=== PATIENT | male | born 1970 | race Caucasian/White ===

== ENCOUNTER → 2016-12-24 | Outpatient (CLI) | payer BC | LOC: HEART 5 09:12 | DX: I20.8 Other forms of angina pectoris (principal) | CPT/HCPCS: 78452; A9502 ==

== ENCOUNTER 2020-11-01 11:03 | Emergency (ER) | payer BC, OTHER ==
[2020-11-01 11:36] LABS: HEMOGLOBIN 17.1 gm/dl (14.0-17.5); RED BLOOD COUNT 6.05 M/UL (4.20-5.50); WHITE BLOOD COUNT 5.3 K/UL (4.5-11.0)
[2020-11-01 12:45] LABS: BUN/CREATININE RATIO 11 (0-10)
== END 2020-11-01 17:30 | disposition left against medical advice (07) ==
LOC: ER1 11:03
PROVIDERS: Emergency Medicine
DX: U07.1 COVID-19 (principal); E11.9 Type 2 diabetes mellitus without complications; I10 Essential (primary) hypertension; Z90.49 Acquired absence of other specified parts of digestive tract; Z88.8 Allergy status to other drugs, medicaments and biological substances
CPT/HCPCS: 71045; 80053; 85025; 85379; 99284; M0239

== ENCOUNTER → 2021-04-15 | Outpatient (CLI) | payer OTHER, BC | LOC: RAD 17:18 | DX: M79.602 Pain in left arm (principal); M79.642 Pain in left hand; M25.532 Pain in left wrist | CPT/HCPCS: 73090; 73110; 73130 ==

== ENCOUNTER → 2021-11-20 | Outpatient (CLI) | payer BC | LOC: EXRD 09:55 | DX: R79.89 Other specified abnormal findings of blood chemistry (principal); K76.0 Fatty (change of) liver, not elsewhere classified; Z90.49 Acquired absence of other specified parts of digestive tract | CPT/HCPCS: 76705 ==